=== PATIENT | female | born 1990 | race African-American/Black ===

== ENCOUNTER 2018-12-16 11:50 | Emergency (ER) | payer MEDICAID ==
[~2018-12-16] VITALS: Ht 172.7 cm; Wt 77.1 kg
[2018-12-16 11:58] VITALS: BP 116/91
--- NOTE | 2018-12-16 12:10 | NUR ---
Patient discharged to home in stable condition. Written and verbal after care instructions given. Patient verbalizes understanding of instruction.
== END 2018-12-16 12:10 | disposition home or self-care (01) ==
LOC: ER 11:58
DX: Z30.012 Encounter for prescription of emergency contraception (principal)